=== PATIENT | female | born 1950 | race Caucasian/White ===

== ENCOUNTER → 2019-12-02 13:29 | Outpatient (CLI) | payer MEDICARE, SELFPAY ==
--- NOTE | ~2019-12-02 | DEXA_ITS ---
Bone Density Report Name: Nakita Funez Age: 69 Sex: Female Ethnicity: White Date of : 1950 Indication: osteopenia; postmenopausal Referring Provider: Adam, Krista Rizvi Study: Bone densitometry was performed. Exam Date: December 02, 2019 Accession number: [id number] Bone Density: Region BMD T-score Z-score Classification AP Spine (L1-L4) 0.868 -1.6 0.3 Osteopenia Femoral Neck (Left) 0.735 -1.0 0.6 Normal Total Hip (Left) 1.052 0.9 2.2 Normal Femoral Neck (Right) 0.727 -1.1 0.5 Osteopenia Total Hip (Right) 1.058 1.0 2.3 Normal Total Hip Mean 1.055 1.0 2.3 Normal World Health Organization criteria for BMD impression classify patients as: Normal (T-score at or above -1.0), Osteopenia (T-score between -1.0 and -2.5), or Osteoporosis (T-score at or below -2.5). 10-year Fracture Risk(1): Major Osteoporotic Fracture 8.6% Hip Fracture 0.8% Reported Risk Factors: [place] (), Neck BMD=0.727, BMI=24.3 (1) FRAX(R) Version 3.08. Fracture probability calculated for an untreated patient. Fracture probability may be lower if the patient has received treatment. Previous Exams: Region Exam Age BMD T-score BMD Change BMD Change Date g/cm2 vs Baseline vs Previous AP Spine(L1-L4) 12/02/2019 69 0.868 -1.6 -0.125* -0.029* 10/20/2017 67 0.897 -1.4 -0.096* -0.020 06/23/2015 64 0.917 -1.2 -0.076* -0.022 02/26/2013 62 0.939 -1.0 -0.054* -0.021 11/30/2010 60 0.961 -0.8 -0.032* -0.004 11/04/2008 58 0.964 -0.8 -0.029* 0.050* 11/02/2007 57 0.915 -1.2 -0.078* -0.078* 10/07/2005 55 0.993 -0.5 Total Hip(Left) 12/02/2019 69 1.052 0.9 -0.018 -0.005 10/20/2017 67 1.057 0.9 -0.013 0.014 06/23/2015 64 1.043 0.8 -0.027 0.060* 02/26/2013 62 0.983 0.3 -0.087* -0.005 11/30/2010 60 0.988 0.4 -0.082* 0.025 11/04/2008 58 0.963 0.2 -0.107* -0.055* 11/02/2007 57 1.018 0.6 -0.052* -0.052* 10/07/2005 55 1.070 1.1 Total Hip(Right) 12/02/2019 69 1.058 1.0 -0.049* -0.006 10/20/2017 67 1.064 1.0 -0.044* 0.020 06/23/2015 64 1.044 0.8 -0.064* 0.058* 02/26/2013 62 0.986 0.4 -0.122* -0.013 11/30/2010 60 0.999 0.5 -0.109* 0.021 11/04/2008 58 0.978 0.3 -0.130* -0.062* 11/02/2007 57 1.040 0.8 -0.067*
--- NOTE | ~2019-12-02 | MM_ITS ---
EXAMINATION: MM screening huseyin BI w josef HISTORY: Screening mammogram TECHNIQUE: Craniocaudal and mediolateral oblique 3-D tomosynthesis images were obtained and synthetic 2-D images were generated. CAD analysis was submitted and interpreted. COMPARISON: Comparison to multiple prior studies sequentially, with oldest reviewed study dated 06/23. BREAST PARENCHYMAL COMPOSITION: There are scattered areas of fibroglandular density. FINDINGS: There is no evidence of suspicious mass, calcification, or architectural distortion to sugg est malignancy in either breast. There has been no suspicious interval change. IMPRESSION: 1. No mammographic evidence of malignancy. 2. Recommend routine screening mammography in one year. BI-RADS Category 1: Negative Reviewed, dictated and finalized at location A. 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
== END ==
PROVIDERS: PCP Internal Medicine; Visit Provider Nurse Practitioner Obstetrics & Gynecology
DX: Z12.31 Encounter for screening mammogram for malignant neoplasm of breast (principal); Z78.0 Asymptomatic menopausal state; M85.88 Other specified disorders of bone density and structure, other site; M85.851 Other specified disorders of bone density and structure, right thigh
CPT/HCPCS: 77063; 77067; 77080

== ENCOUNTER → 2021-02-07 15:16 | Outpatient (CLI) | payer MEDICARE, SELFPAY ==
--- NOTE | ~2021-02-07 | MM_ITS ---
EXAMINATION: MM screening huseyin BI w josef HISTORY: Screening TECHNIQUE: Craniocaudal and mediolateral oblique 3-D tomosynthesis images were obtained and synthetic 2-D images were generated. CAD analysis was submitted and interpreted. COMPARISON: Comparison to multiple prior studies sequentially, with oldest reviewed study dated 06/23. BREAST PARENCHYMAL COMPOSITION: The breasts are heterogeneously dense, which may obscure small masses . FINDINGS: There is no evidence of suspicious mass, calcification, or architectural distortion to sugg est malignancy in either breast. There has been no suspicious interval change. IMPRESSION: 1. No mammographic evidence of malignancy. 2. Recommend routine screening mammography in one year. BI-RADS Category 1: Negative Reviewed, dictated and finalized at location A.
== END ==
PROVIDERS: PCP Internal Medicine; Visit Provider Obstetrics & Gynecology
DX: Z12.31 Encounter for screening mammogram for malignant neoplasm of breast (principal)
CPT/HCPCS: 77063; 77067

== ENCOUNTER → 2022-06-06 14:46 | Outpatient (CLI) | payer MEDICARE, SELFPAY ==
--- NOTE | ~2022-06-06 | DEXA_ITS ---
Bone Density Report Name: PRATEEK COLBERT Age: 71 Sex: Female Ethnicity: White Date of : 1950 Indication: osteopenia;postmenopausal Referring Provider: PASCUAL, BON Hankins Study: Bone densitometry was performed. Exam Date: June 06, 2022 Accession number: [id number] Bone Density: Region BMD T-score Z-score Classification AP Spine (L1-L4) 0.892 -1.4 0.7 Osteopenia Femoral Neck (Left) 0.795 -0.5 1.3 Normal Total Hip (Left) 1.054 0.9 2.4 Normal Femoral Neck (Right) 0.754 -0.9 0.9 Normal Total Hip (Right) 1.009 0.6 2.0 Normal Total Hip Mean 1.032 0.8 2.2 Normal World Health Organization criteria for BMD impression classify patients as: Normal (T-score at or above -1.0), Osteopenia (T-score between -1.0 and -2.5), or Osteoporosis (T-score at or below -2.5). 10-year Fracture Risk(1): Major Osteoporotic Fracture 8.6% Hip Fracture 0.8% Reported Risk Factors: [place] (), Neck BMD=0.754, BMI=25.3 (1) FRAX(R) Version 3.08. Fracture probability calculated for an untreated patient. Fracture probability may be lower if the patient has received treatment. Previous Exams: Region Exam Age BMD T-score BMD Change BMD Change Date g/cm2 vs Baseline vs Previous AP Spine(L1-L4) 06/06/2022 71 0.892 -1.4 -0.101* 0.024* 12/02/2019 69 0.868 -1.6 -0.125* -0.029* 10/20/2017 67 0.897 -1.4 -0.096* -0.020 06/23/2015 64 0.917 -1.2 -0.076* -0.022 02/26/2013 62 0.939 -1.0 -0.054* -0.021 11/30/2010 60 0.961 -0.8 -0.032* -0.004 11/04/2008 58 0.964 -0.8 -0.029* 0.050* 11/02/2007 57 0.915 -1.2 -0.078* -0.078* 10/07/2005 55 0.993 -0.5 Total Hip(Left) 06/06/2022 71 1.054 0.9 -0.017 0.001 12/02/2019 69 1.052 0.9 -0.018 -0.005 10/20/2017 67 1.057 0.9 -0.013 0.014 06/23/2015 64 1.043 0.8 -0.027 0.060* 02/26/2013 62 0.983 0.3 -0.087* -0.005 11/30/2010 60 0.988 0.4 -0.082* 0.025 11/04/2008 58 0.963 0.2 -0.107* -0.055* 11/02/2007 57 1.018 0.6 -0.052* -0.052* 10/07/2005 55 1.070 1.1 Total Hip(Right) 06/06/2022 71 1.009 0.6 -0.099* -0.049* 12/02/2019 69 1.058 1.0 -0.049* -0.006 10/20/2017 67 1.064 1.0 -0.044* 0.020 06/23/2015 64 1.044 0.8 -0.064* 0.058* 02/26/2013 62 0.986 0.4 -0.122* -0.0
--- NOTE | ~2022-06-06 | MM_ITS ---
EXAMINATION: MM screening huseyin BI w josef HISTORY: Screening mammogram, family history of breast cancer in her sister. TECHNIQUE: Craniocaudal and mediolateral oblique 3-D tomosynthesis images were obtained and synthetic 2-D images were generated. CAD analysis was submitted and interpreted. COMPARISON: 02/07/2021, 12/02/2019, 11/05/2018 BREAST PARENCHYMAL COMPOSITION: The breasts are heterogeneously dense, which may obscure small masses . FINDINGS: There is no suspicious mass, calcification, or architectural distortion to suggest malignan cy in either breast. There has been no suspicious interval change. IMPRESSION: 1. No mammographic evidence of malignancy. 2. Recommend routine screening mammography in one year. BI-RADS Category 1: Negative Reviewed, dictated and finalized at location A.
== END ==
PROVIDERS: PCP Internal Medicine; Visit Provider Internal Medicine
DX: Z12.31 Encounter for screening mammogram for malignant neoplasm of breast (principal); M85.88 Other specified disorders of bone density and structure, other site
CPT/HCPCS: 77063; 77067; 77080

== ENCOUNTER → 2023-09-09 15:41 | Outpatient (CLI) | payer MEDICARE, SELFPAY ==
--- NOTE | ~2023-09-09 | MM_ITS ---
EXAMINATION: MM screening huseyin BI w josef HISTORY: Screening mammogram, family history of breast cancer in her sister. TECHNIQUE: Craniocaudal and mediolateral oblique 3-D tomosynthesis images were obtained and synthetic 2-D images were generated. CAD analysis was submitted and interpreted. COMPARISON: 06/06/2022, 02/07/2021, 12/02/2019 BREAST PARENCHYMAL COMPOSITION: The breasts are heterogeneously dense, which may obscure small masses . FINDINGS: No suspicious mass, calcification, or architectural distortion are identified in either jennifer ast to suggest malignancy. There has been no suspicious interval change. IMPRESSION: 1. No mammographic evidence of malignancy. 2. Recommend routine screening mammography in one year. BI-RADS Category 1: Negative Reviewed, dictated and finalized at location A.
== END ==
PROVIDERS: PCP Physician Assistant Medical; Visit Provider Physician Assistant Medical
DX: Z12.31 Encounter for screening mammogram for malignant neoplasm of breast (principal)
CPT/HCPCS: 77063; 77067